=== PATIENT | female | born 1980 | race Asian ===

== ENCOUNTER 2017-06-24 13:27 | Inpatient (IN) | payer SELFPAY ==
[~2017-06-24] VITALS: Ht 160 cm; Wt 69.6 kg
[2017-06-24 14:56] LABS: APPEARANCE,URINE SLIGHTLY HAZY (CLEAR); BILIRUBIN,URINE NEGATIVE (NEGATIVE); BLOOD, URINE NEGATIVE (NEGATIVE); COLOR,URINE YELLOW (YELLOW); LEUKOCYTE ESTERASE ,URINE 1+ (NEGATIVE); NITRITE, URINE NEGATIVE (NEGATIVE); UGLUCOSE NEGATIVE (NEGATIVE)
[2017-06-24 15:00] LABS: CALCIUM OXALATE CRYSTALS,UR 0-10 /HPF (None Seen); RBC,URINE 0-5 (RARE) /HPF (0-5); WBC,URINE 0-5 (RARE) /HPF (0-5)
[2017-06-24 15:01] LABS: BASOPHILS % (AUTO) 0.4 % (0.0-2.0); EOSINOPHILS # (AUTO) 0.1 K/uL (0-0.4); EOSINOPHILS % (AUTO) 0.8 % (0.0-4.0); HEMATOCRIT 33.9 % (36-48); HEMOGLOBIN 11.2 g/dL (12.0-16.0); LYMPHOCYTES # (AUTO) 0.7 K/uL (2.5-16.5); MEAN CORPUSCULAR HEMOGLOBIN 29 pg (27-31); MEAN CORPUSCULAR HGB CONC 33 g/dL (33-37); MEAN CORPUSCULAR VOLUME 88 fL (80-94); MONOCYTES # (AUTO) 0.6 K/uL (0.8-1.0); MONOCYTES % (AUTO) 8.6 % (1.7-9.3); NEUTROPHILS # (AUTO) 5.3 K/uL (1.8-7.7); NEUTROPHILS % (AUTO) 80.2 % (42.2-75.2); PLATELET COUNT (AUTO) 108 K/uL (140-450); RED BLOOD CELL COUNT(AUTO) 3.85 MIL/uL (4.20-5.40); RED CELL DISTRIBUTION WIDTH 16.6 % (11.6-13.7); WHITE BLOOD COUNT (AUTO) 6.7 K/uL (4.8-10.8)
[2017-06-24] MEDS ORDERED: CITRIC ACID/SODIUM CITRATE 30 ML UDC PO SCH (15:35)
[2017-06-24] MEDS ORDERED: TRIAMCINOLONE 10 MG/ML 5ML VIAL ONE (16:09)
[2017-06-24] MEDS ORDERED: OXYTOCIN 10 UNITS/ML VIAL ONE (16:09)
[2017-06-24] MEDS ORDERED: METHYLERGONOVINE 0.2 MG/ML AMP ONE (16:10)
[2017-06-24] MEDS ORDERED: CITRIC ACID/SODIUM CITRATE 30 ML UDC ONE (16:16)
[2017-06-24] MEDS ORDERED: BUPIVACAINE-MPF 0.75% 10 ML VIAL INJ ONE (16:21)
[2017-06-24] MEDS ORDERED: ePHEDrine 50 MG/ML VIAL ONE (16:21)
[2017-06-24] MEDS ORDERED: fentaNYL 0.05 MG/ML VIAL ONE (16:37)
[2017-06-24 16:38] VITALS: BP 110/78
[2017-06-24] MEDS ORDERED: MORPHINE PRES FREE 10 MG/10 ML AMP IV ONE (16:38)
[2017-06-24] MEDS ORDERED: ceFAZolin 1,000 MG VIAL IVP ONE (16:50)
[2017-06-24] MEDS ORDERED: NALBUPHINE 10 MG/ML AMP IVP PRN ×2 (17:00)
[2017-06-24] MEDS ORDERED: TRIMETHOBENZAMIDE 200 MG/2 ML SYR IM PRN (17:00)
[2017-06-24] MEDS ORDERED: ONDANSETRON 4 MG/2 ML VIAL IVP PRN ×2 (17:00)
[2017-06-24] MEDS ORDERED: KETOROLAC 60 MG/2 ML VIAL IM PRN (17:00)
[2017-06-24] MEDS ORDERED: NALOXONE 0.4 MG/ML VIAL IVP PRN ×3 (17:00)
[2017-06-24] MEDS ORDERED: METHYLERGONOVINE 0.2 MG/ML AMP IM PRN (17:00)
[2017-06-24] MEDS ORDERED: diphenhydrAMINE 50 MG/ML VIAL IVP PRN (17:00)
[2017-06-24] MEDS ORDERED: MEASLES, MUMPS, AND RUBELLA 1 VIAL SQVAC PRN (17:00)
[2017-06-24] MEDS ORDERED: THROMBIN KIT 20 MU VIAL TP ONE (17:20)
[2017-06-24 17:41] LABS: RAPID PLASMA REAGIN NON-REACTIVE (Non Reactiv)
[2017-06-24] MEDS: DOCUSATE SOD/SENNA 50/8.6 MG 1 TAB PO SCH (21:00)
[2017-06-25] MEDS: OXYTOCIN 20 UNITS in LACTATED RINGERS 1,000 ML IV SCH ×4 (01:47→14:41)
[2017-06-25] MEDS ORDERED: OXYTOCIN 20 UNITS/LR PREMIX 1,000 ML IV ONE ×2 (01:51→06:06)
[2017-06-25 06:07] LABS: BASOPHILS % (AUTO) 0.2 % (0.0-2.0); EOSINOPHILS # (AUTO) 0.1 K/uL (0-0.4); EOSINOPHILS % (AUTO) 1.1 % (0.0-4.0); HEMATOCRIT 21.2 % (36-48); HEMOGLOBIN 7.1 g/dL (12.0-16.0); LYMPHOCYTES # (AUTO) 0.5 K/uL (2.5-16.5); LYMPHOCYTES % (AUTO) 4.4 % (20.5-51.1); MEAN CORPUSCULAR HEMOGLOBIN 30 pg (27-31); MEAN CORPUSCULAR HGB CONC 34 g/dL (33-37); MEAN CORPUSCULAR VOLUME 88 fL (80-94); MONOCYTES # (AUTO) 0.8 K/uL (0.8-1.0); MONOCYTES % (AUTO) 6.4 % (1.7-9.3); NEUTROPHILS % (AUTO) 87.9 % (42.2-75.2); PLATELET COUNT (AUTO) 130 K/uL (140-450); RED BLOOD CELL COUNT(AUTO) 2.41 MIL/uL (4.20-5.40); WHITE BLOOD COUNT (AUTO) 12.4 K/uL (4.8-10.8)
[2017-06-25] MEDS ORDERED: BACITRACIN OINT 500 UNITS/GM PKT TP SCH (09:00)
--- NOTE | 2017-06-25 09:04 | NUR ---
PATIENT HAS BEEN SCREENED AND CATEGORIZED LOW NUTRITION RISK. PATIENT WILL BE SEEN WITHIN 7 DAYS OF ADMISSION. 07/01/[address]
[2017-06-25] MEDS ORDERED: HYDROcodone/APAP 5/325 MG 1 TAB TAB PO PRN (11:00)
[2017-06-25] MEDS ORDERED: TEMAZEPAM 15 MG CAP PO PRN (11:00)
[2017-06-25] MEDS ORDERED: OXYTOCIN 10 UNITS/ML VIAL ONE (14:38)
[2017-06-25] MEDS: IBUPROFEN 800 MG TAB PO PRN ×2 (14:53→22:39)
[2017-06-25] MEDS: SIMETHICONE 80 MG TAB.CHEW PO PRN (17:39)
[2017-06-25] MEDS: oxyCODONE/APAP 5/325 MG 1 TAB TAB PO PRN (17:41)
[2017-06-25] MEDS ORDERED: METOCLOPRAMIDE 10 MG TAB PO PRN (17:50)
[2017-06-25] MEDS: DOCUSATE SOD/SENNA 50/8.6 MG 1 TAB PO SCH (22:38)
[2017-06-26] MEDS: SIMETHICONE 80 MG TAB.CHEW PO PRN ×3 (02:19→13:33)
[2017-06-26] MEDS: oxyCODONE/APAP 5/325 MG 1 TAB TAB PO PRN ×4 (02:19→19:04)
[2017-06-26] MEDS ORDERED: SODIUM PHOSPHATE 118 ML ENEM RC PRN (02:25)
[2017-06-26 06:50] LABS: LYMPHOCYTES # (AUTO) 0.5 K/uL (2.5-16.5); MONOCYTES # (AUTO) 0.8 K/uL (0.8-1.0)
[2017-06-26 07:00] LABS: BASOPHILS % (AUTO) 0.1 % (0.0-2.0); EOSINOPHILS # (AUTO) 0.1 K/uL (0-0.4); EOSINOPHILS % (AUTO) 0.8 % (0.0-4.0); HEMOGLOBIN 7.1 g/dL (12.0-16.0); LYMPHOCYTES % (AUTO) 4.4 % (20.5-51.1); MEAN CORPUSCULAR HEMOGLOBIN 30 pg (27-31); MEAN CORPUSCULAR HGB CONC 34 g/dL (33-37); MEAN CORPUSCULAR VOLUME 88 fL (80-94); MONOCYTES % (AUTO) 6.9 % (1.7-9.3); NEUTROPHILS # (AUTO) 9.7 K/uL (1.8-7.7); NEUTROPHILS % (AUTO) 87.8 % (42.2-75.2); PLATELET COUNT (AUTO) 104 K/uL (140-450); RED BLOOD CELL COUNT(AUTO) 2.37 MIL/uL (4.20-5.40); RED CELL DISTRIBUTION WIDTH 16.1 % (11.6-13.7)
[2017-06-26] MEDS ORDERED: KETAMINE 500 MG/5 ML VIAL ONE (07:21)
[2017-06-26] MEDS ORDERED: fentaNYL 0.05 MG/ML VIAL ONE (07:21)
[2017-06-26] MEDS ORDERED: MIDAZOLAM 2 MG/2 ML VIAL ONE (07:21)
[2017-06-26] MEDS ORDERED: MORPHINE PRES FREE 10 MG/10 ML AMP IV ONE (07:22)
[2017-06-26 08:04] LABS: HEMATOCRIT 20.8 % (36-48); WHITE BLOOD COUNT (AUTO) 11.1 K/uL (4.8-10.8)
[2017-06-26] MEDS ORDERED: FERROUS GLUCONATE 324 MG TAB PO SCH (08:15)
[2017-06-26] MEDS ORDERED: FERROUS SULFATE 325 MG TABEC PO SCH (09:30)
[2017-06-26] MEDS: FERROUS SULFATE 325 MG TABEC PO SCH (17:00)
[2017-06-26 21:16] LABS: MEAN CORPUSCULAR HEMOGLOBIN 30 pg (27-31); MEAN CORPUSCULAR HGB CONC 34 g/dL (33-37); MEAN CORPUSCULAR VOLUME 89 fL (80-94); PLATELET COUNT (AUTO) 106 K/uL (140-450); RED BLOOD CELL COUNT(AUTO) 2.28 MIL/uL (4.20-5.40); RED CELL DISTRIBUTION WIDTH 16.8 % (11.6-13.7)
[2017-06-26 21:19] LABS: HEMOGLOBIN 6.9 g/dL (12.0-16.0)
[2017-06-26 21:20] LABS: HEMATOCRIT 20.2 % (36-48)
[2017-06-26 21:24] LABS: LYMPHOCYTES % (MANUAL) 2 % (20-46); MONOCYTES % (MANUAL) 1 % (5-12)
[2017-06-26] MEDS ORDERED: METOCLOPRAMIDE 10 MG/2 ML INJ VIAL IVP PRN (22:05)
[2017-06-26] MEDS ORDERED: ACETAMINOPHEN 325 MG TAB PO PRN (23:20)
[2017-06-26] MEDS ORDERED: ceFAZolin 1,000 MG VIAL ONE (23:53)
--- NOTE | 2017-06-27 01:19 | NUR ---
Texted Gillian that patient is very unstable, that Hgb was 7.1, transfused 2 units PRBC, Hgb after that went down to 6.9; there is an order to transfuse another 1 unit PRBC and [address] ADONIS Arrington also ordered NGT. Will ask patient to put NGT; asked patient with hand gesture by showing NGT to the nose; patient said "NO, NO", and patient call Dr ADONIS Arrington. Dr ADONIS Arrington spoke to the patient in Serbian, and Dr ADONIS Arrington stated that patient refused NGT, and refused to go to ICU. Dr ADONIS Arrington left for C section
[2017-06-27] MEDS ORDERED: GENTAMICIN PER PHARMACY MC PRN (01:55)
--- NOTE | 2017-06-27 02:00 | NUR ---
Called Dr Hubbard to let him know that there is a patient in room 200b s/p day3 C section under the care of Dr ADONIS Arrington: Pt is on 5-6L nasal canula, saturated 93%, sbp in low 100's; hr in 110s, temp of 101's. Pt had 2 units PRBC, and 1 unit is transfusing; Dr ADONIS Arrington ordered 1 unit FFP and NGT, which patient refused to have NGT inserted. Pt's abdomen is distended. Dr Hubbard stated that transfer to ICU and then let Dr ADONIS Arrington know. Patient refused to be transferred to ICU. Let Gillian CAN know and Gillian stated to get Refusal of Treatment sign by the patient. Printed the Refusal of Treatment; give it to Radha NAIR for patient and Dr ADONIS Arrington to sign the paper. Dr ADONIS Arrington is doing C section at this time
[2017-06-27] MEDS ORDERED: LACTATED RINGERS 1,000 ML IV SCH (02:35)
[2017-06-27] MEDS ORDERED: NACL 0.9% 1,000 ML IV SCH (02:40)
[2017-06-27] MEDS ORDERED: AMPICILLIN 2,000 MG in NACL 0.9% 100 ML IV SCH ×4 (04:00)
[2017-06-27] MEDS ORDERED: CLINDAMYCIN 900 MG/6 ML VIAL IV ONE (04:25)
[2017-06-27] MEDS ORDERED: AMPICILLIN 2,000 MG VIAL ONE ×3 (04:25→13:21)
[2017-06-27] MEDS ORDERED: CLINDAMYCIN 900 MG in DEXTROSE 5% 100 ML IV SCH (05:00)
[2017-06-27] MEDS: CLINDAMYCIN 900 MG in DEXTROSE 5% 100 ML IV SCH ×2 (05:29→21:30)
[2017-06-27] MEDS ORDERED: GENTAMICIN 80 MG/2 ML VIAL ONE (06:22)
[2017-06-27] MEDS: GENTAMICIN 80 MG in DEXTROSE 5% 100 ML IV SCH ×2 (06:34→21:30)
--- NOTE | 2017-06-27 06:48 | NUR ---
Pt placed on non rebreather mask per Dr Arrington, tolerating well, o2 sat 97%, will titrate fiO2 as tolerated.
--- NOTE | 2017-06-27 08:08 | NUR ---
PLACED IN 10LPM OXYMIZER, TOLERATING WELL, O2 SAT 97%, WILL CONTINUEO TO MONITOR
[2017-06-27 10:35] LABS: ANION GAP 7.8 (8-16); CARBON DIOXIDE 26.3 mmol/L (21-32); CREATININE 0.5 mg/dL (0.6-1.3); POTASSIUM 3.1 mmol/L (3.5-5.1)
--- NOTE | 2017-06-27 14:30 | NUR ---
DR BARON IN THE UNIT SAID HE ODRER PT JANELLE JARAMILLO FROM [facility] TO ICU WITH DX POSIBLE CARDIO MYOPTRY . HE IS THE CONDUCTANCE INTENSIVES AND TO NOTIFY HIM IF PT, HAS ANY BLEEDING ACTIVITY,AND DR ADONIS AVILA WILL CONTINUE TO TAKE CARE OTHER PROBLEMS ,
--- NOTE | 2017-06-27 14:45 | NUR ---
PT TRANSFERRED FROM [facility] TO ICU VIA HOSPITAL BED X 2 ASSISTS. PT IS INDONESIAN SPEAKING, AWAKE, AAO X 4. SINUS TACHY ON MONITOR. PT IS ON 02 2 LPM/NC, O2 SAT 94%. LUNGS CLEAR BILATERALLY UPON AUSCULTATION. PERIPHERAL IV 18G TO RIGHT WRIST INTACT, NO BLOOD RETURN NOTED. ANOTHER PERIPHERAL IV 20G TO LEFT HAND INFILTRATED AND DISCONTINUED. DISTENDED ABDOMEN NOTED. NO BLEEDING OR S/SX INFECTION NOTED ON SURGICAL INCISION AT LOWER MID ABDOMINAL AREA, STERI STRIPS IN PLACE. NO LOCHIA NOTED AT THIS TIME. [place] CATH IN PLACE DRAINING CLEAR YELLOW URINE. NO EDEMA NOTED. SCD IN PLACE. BED IN LOW POSITION AND CALL LIGHT WITHIN REACH. WILL CONTINUE TO MONITOR. Addendum: 06/27/17 at 1910 by Abbey Francois RN ON O2 @ 2 LPM/ OXYMIZER
[2017-06-27] MEDS ORDERED: KCL 20 MEQ/WATER INJ PREMIX 100 ML IV ONE ×2 (15:05→16:15)
[2017-06-27] MEDS: NACL 0.9% 1,000 ML IV SCH (15:15)
[2017-06-27] MEDS ORDERED: POTASSIUM CHLORIDE 20 MEQ, LIDOCAINE 1% 25 MG in NACL 0.9% 250 ML IV SCH (16:25)
--- NOTE | 2017-06-27 16:30 | NUR ---
CT ABDOMEN DONE. PT TOLERATED WELL.
[2017-06-27 16:46] VITALS: BP 119/82
--- NOTE | 2017-06-27 17:39 | NUR ---
PT RESTING COMFORTABLY AT THIS TIME. NO SIGNS OF DISCOMFORT OR ACUTE DISTRESS NOTED. WILL CONTINUE TO MONITOR.
[2017-06-27 17:40] LABS: HEMATOCRIT 24.2 % (36-48); HEMOGLOBIN 8.2 g/dL (12.0-16.0); MEAN CORPUSCULAR HEMOGLOBIN 29 pg (27-31); MEAN CORPUSCULAR HGB CONC 34 g/dL (33-37); MEAN CORPUSCULAR VOLUME 86 fL (80-94); PLATELET COUNT (AUTO) 107 K/uL (140-450); RED BLOOD CELL COUNT(AUTO) 2.82 MIL/uL (4.20-5.40); RED CELL DISTRIBUTION WIDTH 18.9 % (11.6-13.7); WHITE BLOOD COUNT (AUTO) 12.9 K/uL (4.8-10.8)
[2017-06-27 17:48] LABS: ANION GAP 7.7 (8-16); CARBON DIOXIDE 28.3 mmol/L (21-32); CREATININE 0.5 mg/dL (0.6-1.3)
[2017-06-27 18:00] VITALS: BP 109/70
[2017-06-27 18:03] LABS: LYMPHOCYTES % (MANUAL) 5 % (20-46); MONOCYTES % (MANUAL) 4 % (5-12)
[2017-06-27] MEDS ORDERED: POTASSIUM CHLORIDE 20% 40 MEQ/15 ML UDC PO SCH (18:25)
--- NOTE | 2017-06-27 19:28 | NUR ---
REPORT GIVEN TO WASH HOUSE SUPERVISOR RN FOR CONTINUITY OF CARE. PT IS IN STABLE CONDITION.
--- NOTE | 2017-06-27 19:30 | NUR ---
RECEIVED REPORT FROM HERMAN RN AT BEDSIDE, PT IS A/OX4, ABLE TO FOLLOW COMMANDS AND MAKE NEEDS KNOWN, NO S/SX OF SOB/RESPIRATORY DISTRESS, CLEAR LUNG SOUNDS, ON O2 AT 2L VIA OXYMIZER. DENIES CHEST PAIN, SR ON BANQUET LEAD. LARGE ABDOMEN WITH ACTIVE BOWEL SOUNDS, POST WOUND PRESENT, C/D/I, [place] CATHETER IN PLACE WITH CLEAR YELLOW URINE IN BAG, SMALL VAGINAL BLEEDING NOTED, ABLE TO MOVE ALL EXTREMITIES, SCD'S ON BLE FOR PREVENTION, SKIN WARM AND DRY TO TOUCH, PERIPHERAL LINE TO RIGHT WRIST 18GA RUNNING NS AT 100ML/HR, PERIPHERAL LINE TO RIGHT FOREARM 20GA PATENT AND SL, SAFETY PRECAUTION MAINTAINED, VSS, C/O PAIN TO ABDOMEN, 12/14, WILL GIVEN PAIN MEDICATION.
[2017-06-27] MEDS: AMPICILLIN 2,000 MG in NACL 0.9% 100 ML IV SCH (19:55)
[2017-06-27 20:00] VITALS: BP 112/76
[2017-06-27] MEDS: DOCUSATE SOD/SENNA 50/8.6 MG 1 TAB PO SCH ×2 (20:06→21:00)
--- NOTE | 2017-06-27 20:13 | NUR ---
DR. BURCIAGA CALLED AT 1999, NEW ORDERS GIVEN, EKG LEONIE, ECHO IN AM.
--- NOTE | 2017-06-27 21:09 | NUR ---
DR. BARON PAGED AT [phone], CALLED BACK AT THIS TIME, REPORTED TO MD RESULT OF CT ABDOMEN/PELVIS WITHOUT CONTRAST THAT WAS DONE TODAY 06-27-[address] BARON SAID TO CALL (OB GYNE) AND LET HIM KNOW ABOUT THE RESULT, INFORMED DR. BARON THAT JOANIE GONZALEZ ALREADY INFORMED DR. ABDULLAHI ABOUT THE RESULT BUT NO ORDER WAS GIVEN BY . REASSURED DR. BARON THAT I WILL CALL DR. AVILA TO LET HIM KNOW ABOUT THE CT ABD RESULT.
--- NOTE | 2017-06-27 21:20 | NUR ---
PAGED, READ TO HIM THE RESULT OF THE CT ABD/PELVIS WITHOUT CONTRAST RESULT, MD STATED "IT'S OK, IT'S OK , SHE'S STABLE, SHE'S NOT COMPLAINING OF ANY PAIN'. DR. BARON WAS CALLING ALSO WHILE I WAS TALKING TO DR. AVILA, INFORMED HIM ABOUT DR. AVILA'S ANSWER REGARDING THE RESULT. DR. THOMAS BURCIAGA (CARDIO) IN THE UNIT AT THIS TIME TOO TO SEE THE PATIENT AND SPOKE WITH DR. BARON ON THE PHONE, NEW ORDER RECEIVED FROM DR. BURCIAGA.
--- NOTE | 2017-06-27 21:25 | NUR ---
Paged Dr Farmer [phone] Farmer wanted to talk to HS
[2017-06-27] MEDS ORDERED: FUROSEMIDE 20 MG/2 ML VIAL IVP SCH (21:35)
--- NOTE | 2017-06-27 21:44 | NUR ---
Dr Farmer called, stated that ICU nurse talked to Dr ADONIS Arrington and according to Dr ADONIS Arrington pt is ok and stable. Dr Farmer did not give any new order and told me to watch the patient
[2017-06-27 22:00] VITALS: BP 112/81
--- NOTE | 2017-06-27 22:25 | NUR ---
HERE TO SEE THE PATIENT, ASKED TO CALL DR. BURCIAGA SO HE CAN TALK WITH HIM. DR. AVILA GAVE VERBAL ORDER TO TRANSFER THE PATIENT BACK TO [facility] . TRAFFIC PERSONNEL SUPERVISOR AMANDO NOTIFIED.
--- NOTE | 2017-06-27 22:34 | NUR ---
Call Dr ADONIS Arrington and left him a message that the nurses are max with the patients, so patient will be transferred tomorrow. Wait for Dr ADONIS Arrington to call back
[2017-06-28] VITALS: BP 91/59
--- NOTE | 2017-06-28 | NUR ---
NO CHANGE OF CONDITION AT THIS TIME, VSS.
[2017-06-28] MEDS: BETHANECHOL 25 MG TAB PO SCH ×2 (00:01→06:13)
[2017-06-28] MEDS: AMPICILLIN 2,000 MG in NACL 0.9% 100 ML IV SCH ×3 (00:01→08:18)
[2017-06-28] MEDS: NACL 0.9% 1,000 ML IV SCH (01:05)
[2017-06-28 02:00] VITALS: BP 112/77
--- NOTE | 2017-06-28 02:00 | NUR ---
NO CHANGE OF CONDITION AT THIS TIME, PT IS AWAKE, VSS.
[2017-06-28 04:00] VITALS: BP 121/72
--- NOTE | 2017-06-28 04:00 | NUR ---
REFUSED AM CARE, STATED WOULD DO IT LATER.
[2017-06-28] MEDS: CLINDAMYCIN 900 MG in DEXTROSE 5% 100 ML IV SCH (04:58)
[2017-06-28] MEDS: GENTAMICIN 80 MG in DEXTROSE 5% 100 ML IV SCH (04:58)
[2017-06-28 05:52] LABS: BASOPHILS % (AUTO) 0.2 % (0.0-2.0); EOSINOPHILS # (AUTO) 0.1 K/uL (0-0.4); EOSINOPHILS % (AUTO) 0.9 % (0.0-4.0); HEMATOCRIT 25.1 % (36-48); HEMOGLOBIN 8.3 g/dL (12.0-16.0); LYMPHOCYTES # (AUTO) 0.7 K/uL (2.5-16.5); LYMPHOCYTES % (AUTO) 6.1 % (20.5-51.1); MEAN CORPUSCULAR HEMOGLOBIN 29 pg (27-31); MEAN CORPUSCULAR HGB CONC 33 g/dL (33-37); MEAN CORPUSCULAR VOLUME 87 fL (80-94); MONOCYTES # (AUTO) 0.6 K/uL (0.8-1.0); MONOCYTES % (AUTO) 5.7 % (1.7-9.3); NEUTROPHILS # (AUTO) 9.4 K/uL (1.8-7.7); NEUTROPHILS % (AUTO) 87.1 % (42.2-75.2); PLATELET COUNT (AUTO) 114 K/uL (140-450); WHITE BLOOD COUNT (AUTO) 10.8 K/uL (4.8-10.8)
[2017-06-28 06:00] VITALS: BP 112/76
--- NOTE | 2017-06-28 06:00 | NUR ---
VSS, NO S/S OF DISTRESS, WILL CONTINUE TO MONITOR.
[2017-06-28 06:01] LABS: ANION GAP 10.1 (8-16); CARBON DIOXIDE 25.3 mmol/L (21-32); CREATININE 0.6 mg/dL (0.6-1.3); POTASSIUM 3.4 mmol/L (3.5-5.1)
--- NOTE | 2017-06-28 07:16 | NUR ---
RECEIVED REPORT FROM NIGHT RN FOR CONTINUITY OF CARE. PATIENT IN STABLE CONDITION. ON 02 VIA OXYMIZER AT 2 LPM. RFA G20 AND R WIRST G18 PERIPHERAL IV PATENT AND INTACT. FC 16FR PATENT AND INTACT TO CLEAR YELLOW URINE IN MODERATE AMOUNT. PATIENT IS ALERT AND ORIENTED X4, MAINLY SYRIAC SPEAKING BUT ABLE TO COMMUNICATE NEEDS. ABLE TO TURN AND REPOSITION SELF WITH MINIMAL ASSISTANCE. MINIMAL LOCHIAL DISCHARGES TO LIGHT RED. MADE COMFORTABLE IN BED. CALL LIGHT WITHIN REACH.
--- NOTE | 2017-06-28 07:16 | NUR ---
REPORT GIVEN TO JOANIE SUTTON AT BEDSIDE FOR CONTINUE OF CARE, PT IS IN STABLE CONDITION.
--- NOTE | 2017-06-28 07:30 | NUR ---
PT REFUSED BREAKFAST. OPTED TO WAIT FOR HOME FOOD BROUGHT IN BY FRIEND. REFUSED SCD AND BP CUFF TO BE PLACED.
[2017-06-28 08:00] VITALS: BP 101/67
[2017-06-28] MEDS: FERROUS SULFATE 325 MG TABEC PO SCH (08:21)
--- NOTE | 2017-06-28 08:30 | NUR ---
PT REFUSED O2. PT REMOVED IV ON RIGHT WRIST. NO BLEEDING NOTED AND CATHETER TIP INTACT.
--- NOTE | 2017-06-28 08:40 | NUR ---
PT INSISTED ON GETTING OUT OF BED AND GO TO RESTROOM. OFFERED BEDSIDE COMMODE AND REFUSED. TOOK PT TO RESTROOM. HAD BM. MODERATE AMOUNT.
--- NOTE | 2017-06-28 10:28 | NUR ---
PT WHEELED OUT TO [facility] ROOM 218. REPORT GIVEN TO RECEIVING RN. BELONGINGS BROUGHT TO ROOM. PATIENT IN STABLE CONDITION. MINIMAL LOCHIA NOTED. MADE COMFORTABLE IN BED. BED AT LOWEST POSSIBLE POSITION AND CALL LIGHT WITHIN REACH. ANTIBIOTICS HANDED TO RECEIVING RN.
[2017-06-28] MEDS: IBUPROFEN 800 MG TAB PO PRN (13:10)
[2017-06-28] MEDS: SIMETHICONE 80 MG TAB.CHEW PO PRN (13:11)
== END 2017-06-28 14:00 | disposition home or self-care (01) | DRG 766 ==
LOC: MLD 13:27 → MFCC 18:45 → MIC 06-27 14:45 → MFCC 06-28 10:28
PROVIDERS: ADMIT Obstetrics & Gynecology; ATTEND Obstetrics & Gynecology
PROC: 10D00Z1 Extraction of Products of Conception, Low, Open Approach (ICD-10-PCS; principal; 2017-06-24 16:30)
DX: O34.211 Maternal care for low transverse scar from previous cesarean delivery (principal); Z37.0 Single live birth; Z3A.38 38 weeks gestation of pregnancy
CPT/HCPCS: 36415; 36600; 71010; 76700; 80048; 80170; 81001; 82803; 85025; 86592; 86886; 86900; 86901; 86920; 87086; 93005; C1758; J0290; J0690; J1580; J1885; J1940; J2210; J2250; J2270; J2405; J2590; J2765; J3010; J3301; J3490; J7030; J7060; J7120; J8597; P9016; P9017; Q0092